=== PATIENT | female | born 1990 | race Caucasian/White ===

== ENCOUNTER 2016-12-09 19:23 | Emergency (ER) | payer OTHER ==
--- NOTE | ~2016-12-09 | US85 ---
[facility] A Service of [facility] RADIOLOGY TEXT RESULTS PATIENT: FLO HSIEH LOCATION: [facility] : [birth year] UNIT #: [id number] AGE: [address]: OZ ROSADO APRN SEX: F ORDER DR: [id number] [facility] [address] [place], [place] [address] [id number] E MR#: [id number] Acc #: [id number] NAME: FLO HSIEH : 1990 SEX: F STUDY DATE/TIME: 12/09/2016 19:39 UNIT: CFTX ROOM: STUDY DESCRIPTION: [facility] or [facility] St[facility] Attending Physician: Oz Rosado Aprn Ordering Physician: Oz Rosado Aprn [facility] RE[facility] This report is preliminary unless electronic signature is present EXAM Color Doppler ultrasound examination of the right lower extremity. HISTORY Right leg pain beginning today. TECHNIQUE Ultrasound evaluation was performed with sebastian-scale, color flow and Doppler spectral waveform analysis. FINDINGS The examination is negative. There is no evidence of right lower extremity deep venous thrombus from the groin to the lower calf. Visualized greater saphenous vein is also patent. IMPRESSION Negative examination. No evidence of right lower extremity DVT. Dictated by... Kristian Greer M.D. THIS IS AN ELECTRONICALLY VERIFIED REPORT Kristian Greer M.D. at 12/09/2016 10:22 PM MAYKEL/harman TD: 12/09/2016 20:47 JOB #: [id number] MEDICAL IMAGING REPORT [facility] A Service of [facility] RADIOLOGY TEXT RESULTS PATIENT: FLO HSIEH LOCATION: [facility] : [birth year] UNIT #: [id number] AGE: [address]: OZ ROSADO APRN SEX: F ORDER DR: Page 1 of 1 COPY
[2016-12-09 19:13] LABS: BASOPHIL# 0.1 X10e3 (0-0.3); BASOPHIL% 0.8 % (0-2.5); EOSINOPHIL# 0.3 X10e3 (0-0.7); EOSINOPHIL% 3.8 % (0.0-7.0); HEMATOCRIT 45.1 % (35.0-45.0); HEMOGLOBIN 15.8 gm/dL (12.0-16.0); LYMPHOCYTE# 2.9 X10e3 (1.0-3.5); LYMPHOCYTE% 33.5 % (17.0-45.0); MEAN CELL VOLUME 91.3 FL (83-96); MEAN PLATELET VOLUME 8.1 FL (6.5-11.5); MONOCYTE# 0.6 X10e3 (0-1.0); MONOCYTE% 7.3 % (3.0-12.0); NEUTROPHIL# 4.7 X10e3 (1.5-7.1); NEUTROPHIL% 54.6 % (40-75); PLATELET COUNT 264 X10e3 (140-420); RED BLOOD COUNT 4.94 X10e (3.90-5.30); RED CELL DISTRIBUTION WIDTH 13.3 % (11.0-15.5); WHITE BLOOD COUNT 8.6 X10e3 (4.0-10.5)
[2016-12-09 19:16] LABS: DIFF IND NO
[2016-12-09 19:32] LABS: PARTIAL THROMBOPLASTIN TIME 28.4 SECONDS (23.5-31.3)
[2016-12-09 19:37] LABS: BUN/CREATININE RATIO 8.88; CALCIUM SERUM 9.8 mg/dL (8.4-10.2); CREATININE SERUM 0.9 mg/dL (0.6-1.4); GLOM FILT RATE Estimated 88.9 mL/min (>60); POTASSIUM 3.5 mmol/L (3.5-5.1)
== END 2016-12-09 20:53 | disposition home or self-care (01) ==
LOC: CFTX 19:23
PROVIDERS: Emergency Medicine
DX: M79.661 Pain in right lower leg (principal); F32.9 Major depressive disorder, single episode, unspecified; F17.210 Nicotine dependence, cigarettes, uncomplicated; Z88.6 Allergy status to analgesic agent
CPT/HCPCS: 36415; 80048; 85025; 85379; 85730; 93971; 99284